=== PATIENT | female | born 1985 | race Hispanic/Latino ===

== ENCOUNTER 2021-01-03 10:25 | Observation (INO) | payer OTHER ==
[~2021-01-03] VITALS: Ht 154.9 cm; Wt 68.9 kg
[2021-01-03 11:20] VITALS: BP 123/83
== END 2021-01-03 15:20 | disposition home or self-care (01) ==
LOC: OBSVTOIN 10:25 → LDH 10:25 → INTOOBSV 10:25 → LDH 11:32
PROVIDERS: ADMIT Obstetrics & Gynecology; ATTEND Obstetrics & Gynecology
DX: Z34.93 Encounter for supervision of normal pregnancy, unspecified, third trimester (principal); Z3A.37 37 weeks gestation of pregnancy
CPT/HCPCS: 59025; 76805; G0378 ×4

== ENCOUNTER 2021-01-17 22:21 | Inpatient (IN) | payer OTHER ==
[~2021-01-17] VITALS: Ht 154.9 cm; Wt 70.3 kg
[2021-01-17] MEDS ORDERED: AMPICILLIN 2GM+NS 100ML 100 ML IV SCH (23:15)
[2021-01-17] MEDS ORDERED: LACTATED RINGERS 1000ML 1,000 ML IV PRN (23:15)
[2021-01-17 23:23] LABS: APPEARANCE,URINE Clear (CLEAR); BILIRUBIN,URINE Negative (NEGATIVE); COLOR,URINE Yellow (YELLOW); GLUCOSE, URINE (UA) Negative (NEGATIVE); KETONES,URINE Negative (NEGATIVE); LEUKOCYTE ESTERASE ,URINE Negative (NEGATIVE); NITRATE,URINE Negative (NEGATIVE); OCCULT BLOOD,URINE Negative (NEGATIVE); PH,URINE 6.5 (5.0-8.0); PROTEIN,URINE Negative (NEGATIVE); UROBILINOGEN,URINE 0.2 mg/dL (0.2-1.0)
[2021-01-17 23:42] LABS: HEMATOCRIT 40.2 % (36-48); MEAN CORPUSCULAR HEMOGLOBIN 30.7 pg (27.0-33.0); MEAN CORPUSCULAR HGB CONC 33.3 g/dL (32.0-36.0); RED BLOOD CELL COUNT(AUTO) 4.37 MIL/uL (4.00-5.50)
[2021-01-18] MEDS: OXYTOCIN-LR 20 UNITS/1000 ML 1,000 ML IV SCH ×2 (03:30→12:39)
[2021-01-18] MEDS: AMPICILLIN 1GM+NS 50ML 50 ML IV SCH ×2 (03:33→07:39)
[2021-01-18] MEDS ORDERED: LACTATED RINGERS 500 ML 500 ML IV PRN (08:00)
[2021-01-18] MEDS ORDERED: EPHEDRINE SULFATE 50 MG/ML AMPULE IVP PRN (08:00)
[2021-01-18] MEDS ORDERED: NALOXONE HCL 0.4 MG/1 ML ML IV PRN (08:00)
[2021-01-18] MEDS ORDERED: MISOPROSTOL 200 MCG TABLET ONE (10:26)
[2021-01-18] MEDS ORDERED: METHYLERGONOVINE MALEATE 0.2 MG/1 ML ML ONE (10:27)
[2021-01-18] MEDS ORDERED: LIDOCAINE HCL 1% 20 ML VIAL ONE (10:27)
[2021-01-18] MEDS ORDERED: ACETAMINOPHEN 325 MG TAB PO PRN (12:30)
[2021-01-18] MEDS ORDERED: BENZOCAINE/LANOLIN/ALOE VERA 60 ML AEROSOL TP PRN (12:30)
[2021-01-18] MEDS ORDERED: ACETAMINOPHEN WITH CODEINE 1 TAB TAB PO PRN (12:30)
[2021-01-18] MEDS ORDERED: OXYTOCIN-LR 20 UNITS/1000 ML 1,000 ML IV SCH (12:30)
[2021-01-18] MEDS ORDERED: DIPH,PERTUSS(ACELL),TET VAC/PF 0.5 ML VIAL IM PRN (12:30)
[2021-01-18] MEDS ORDERED: MEASLES/MUMPS/RUBELLA VACCINE, LIVE 0.5 ML/VIAL SQ PRN (12:30)
[2021-01-18] MEDS ORDERED: LANOLIN 30GM OINTMENT TP PRN (12:30)
[2021-01-18] MEDS ORDERED: WITCH HAZEL 1 PAD TP PRN (12:30)
[2021-01-18 13:53] VITALS: BP 120/71
[2021-01-18] MEDS: IBUPROFEN 600 MG TABLET PO PRN ×2 (14:26→20:04)
[2021-01-18] MEDS ORDERED: FISH1CAP50 PO (15:19)
[2021-01-18] MEDS ORDERED: PREN-154 PO (15:19)
[2021-01-18 16:31] VITALS: BP 118/68
[2021-01-18 20:00] VITALS: BP 102/68
[2021-01-18] MEDS: DOCUSATE SODIUM 100 MG CAP PO SCH (20:03)
[2021-01-18 23:50] VITALS: BP 98/61
[2021-01-19 04:25] VITALS: BP 101/68
[2021-01-19 06:50] LABS: HEMATOCRIT 32.7 % (36-48); MEAN CORPUSCULAR HGB CONC 33.3 g/dL (32.0-36.0); MEAN CORPUSCULAR VOLUME 92.9 fL (79-99); RED BLOOD CELL COUNT(AUTO) 3.52 MIL/uL (4.00-5.50); RED CELL DISTRIBUTION WIDTH 13.1 % (11.0-15.5); WHITE BLOOD COUNT (AUTO) 11.5 K/uL (4.8-10.8)
[2021-01-19 07:15] LABS: HEPATITIS Bs ANTIGEN SCREEN P Negative (Negative)
[2021-01-19 07:27] VITALS: BP 105/65
[2021-01-19] MEDS: DOCUSATE SODIUM 100 MG CAP PO SCH (08:31)
[2021-01-19] MEDS: IBUPROFEN 600 MG TABLET PO PRN ×2 (08:34→14:18)
[2021-01-19 11:02] VITALS: BP 102/67
[2021-01-19 16:24] VITALS: BP 128/73
[2021-01-19 16:33] VITALS: BP 103/65
== END 2021-01-19 16:40 | disposition home or self-care (01) | DRG 807 ==
LOC: LDH 22:21 → WSH 01-18 13:45
PROVIDERS: ADMIT Obstetrics & Gynecology; ATTEND Obstetrics & Gynecology
PROC: 10E0XZZ Delivery of Products of Conception, External Approach (ICD-10-PCS; principal; 2021-01-18)
PROC: 0KQM0ZZ Repair Perineum Muscle, Open Approach (ICD-10-PCS; 2021-01-18)
PROC: 3E033VJ Introduction of Other Hormone into Peripheral Vein, Percutaneous Approach (ICD-10-PCS; 2021-01-18)
PROC: 3E0R3BZ Introduction of Anesthetic Agent into Spinal Canal, Percutaneous Approach (ICD-10-PCS; 2021-01-18)
PROC: 00HU33Z Insertion of Infusion Device into Spinal Canal, Percutaneous Approach (ICD-10-PCS; 2021-01-18)
PROC: 10907ZC Drainage of Amniotic Fluid, Therapeutic from Products of Conception, Via Natural or Artificial Opening (ICD-10-PCS; 2021-01-18)
DX: O99.824 Streptococcus B carrier state complicating childbirth (principal); Z37.0 Single live birth; O70.1 Second degree perineal laceration during delivery; Z3A.39 39 weeks gestation of pregnancy
CPT/HCPCS: 36415; 81003; 85027; 86592; 86850; 86900; 86901; 87340; A4314; G0378; J0290; J2210; J2590; J7120